=== PATIENT | male | born 1955 | race Native Hawaiian/Other Pacific Islander ===

== ENCOUNTER 2016-05-21 10:43 | Outpatient (CLI) | payer BC | END 2016-05-21 19:50 | disposition home or self-care (01) | LOC: MRI 10:43 | DX: M50.122 Cervical disc disorder at C5-C6 level with radiculopathy (principal) ==

== ENCOUNTER 2017-09-16 08:22 | Outpatient (CLI) | payer OTHER ==
[2017-09-16 08:35] LABS: PLATELET COUNT 183 K/uL (142-355)
[2017-09-16 09:39] LABS: POTASSIUM 4.3 mmol/L (3.6-5.2)
== END 2017-09-16 19:33 | disposition home or self-care (01) ==
LOC: LABW 08:22
PROVIDERS: Internal Medicine
DX: Z00.00 Encounter for general adult medical examination without abnormal findings (principal); Z12.5 Encounter for screening for malignant neoplasm of prostate; E78.00 Pure hypercholesterolemia, unspecified
CPT/HCPCS: 36415; 80053; 80061; 81000; 84153; 84443; 85027

== ENCOUNTER 2018-02-10 07:54 | Outpatient (CLI) | payer OTHER | END 2018-02-10 23:22 | disposition home or self-care (01) | LOC: MRI 07:54 | DX: M54.16 Radiculopathy, lumbar region (principal); M25.552 Pain in left hip ==

== ENCOUNTER 2018-11-24 08:26 | Outpatient (CLI) | payer OTHER ==
[2018-11-24 08:59] LABS: PLATELET COUNT 203 K/uL (142-355)
== END 2018-11-24 19:56 | disposition home or self-care (01) ==
LOC: LABW 08:26
PROVIDERS: Internal Medicine
DX: Z00.00 Encounter for general adult medical examination without abnormal findings (principal); Z12.11 Encounter for screening for malignant neoplasm of colon; Z12.5 Encounter for screening for malignant neoplasm of prostate
CPT/HCPCS: 36415; 80053; 80061; 81000; 82272; 84153; 84443; 85027

== ENCOUNTER 2018-11-25 12:59 | Outpatient (CLI) | payer OTHER | END 2018-11-25 23:27 | disposition home or self-care (01) | LOC: LAB 12:59 | DX: Z12.11 Encounter for screening for malignant neoplasm of colon (principal); Z12.5 Encounter for screening for malignant neoplasm of prostate ==

== ENCOUNTER 2018-11-26 07:50 | Outpatient (CLI) | payer OTHER | END 2018-11-26 23:42 | disposition home or self-care (01) | LOC: LAB 07:50 | DX: Z12.11 Encounter for screening for malignant neoplasm of colon (principal); Z12.5 Encounter for screening for malignant neoplasm of prostate | CPT/HCPCS: 82272 ==

== ENCOUNTER 2020-02-15 14:58 | Outpatient (CLI) | payer OTHER, MEDICARE | END 2020-02-15 19:39 | disposition home or self-care (01) | LOC: LABW 14:58 | DX: E55.9 Vitamin D deficiency, unspecified (principal) | CPT/HCPCS: 36415; 82306 ==

== ENCOUNTER 2020-10-17 10:02 | Outpatient (CLI) | payer OTHER, MEDICARE | END 2020-10-17 22:08 | disposition home or self-care (01) | LOC: LABW 10:02 | PROVIDERS: ATTEND Orthopaedic Surgery | DX: Z01.818 Encounter for other preprocedural examination (principal) | CPT/HCPCS: 87070 ==

== ENCOUNTER 2021-04-03 10:35 | Outpatient (CLI) | payer OTHER, MEDICARE ==
[2021-04-03 11:26] LABS: PLATELET COUNT 240 K/uL (142-355)
[2021-04-03 11:47] LABS: POTASSIUM 4.2 mmol/L (3.6-5.2)
== END 2021-04-03 20:22 | disposition home or self-care (01) ==
LOC: LABW 10:35
PROVIDERS: ATTEND Internal Medicine
DX: E55.9 Vitamin D deficiency, unspecified (principal); I10 Essential (primary) hypertension; R53.83 Other fatigue; Z79.899 Other long term (current) drug therapy; E53.8 Deficiency of other specified B group vitamins
CPT/HCPCS: 36415; 80053; 81000; 82024; 82043; 82088; 82306; 82533; 82607; 82728; 82746; 83036; 83540; 83550; 83735; 83835; 84100; 84244; 84439; 84443; 85027; 85652; 86038; 86430

== ENCOUNTER 2022-01-09 07:53 | Outpatient (CLI) | payer OTHER, MEDICARE | END 2022-01-09 19:21 | disposition home or self-care (01) | LOC: CT 07:53 | PROVIDERS: ATTEND Internal Medicine | DX: R10.9 Unspecified abdominal pain (principal); Z87.442 Personal history of urinary calculi; Z09 Encounter for follow-up examination after completed treatment for conditions other than malignant neoplasm ==

== ENCOUNTER 2022-01-09 21:49 | Emergency (ER) | payer OTHER, MEDICARE ==
[~2022-01-09] VITALS: Ht 180.3 cm; Wt 95.3 kg
[2022-01-09 23:16] LABS: PLATELET COUNT 208 K/uL (142-355)
[2022-01-09 23:28] LABS: POTASSIUM 4.3 mmol/L (3.6-5.2)
[2022-01-10 01:55] VITALS: TEMP 98.2
[2022-01-10 02:00] VITALS: BP 121/80
== END 2022-01-10 01:55 | disposition home or self-care (01) ==
LOC: ED 21:49
PROVIDERS: Emergency Medicine Emergency Medical Services
DX: N20.0 Calculus of kidney (principal); K57.32 Diverticulitis of large intestine without perforation or abscess without bleeding; Z87.442 Personal history of urinary calculi
CPT/HCPCS: 36415; 80053; 81000; 85027; 96365; 96375; 96376; 99284; J0696; J1885; J2270; J2405

== ENCOUNTER 2022-03-11 14:15 | Outpatient (CLI) | payer OTHER, MEDICARE ==
[2022-03-11 14:32] LABS: PLATELET COUNT 179 K/uL (142-355)
[2022-03-11 15:15] LABS: POTASSIUM 4.2 mmol/L (3.6-5.2)
== END 2022-03-11 19:00 | disposition home or self-care (01) ==
LOC: LABW 14:15
PROVIDERS: ATTEND Internal Medicine
DX: I10 Essential (primary) hypertension (principal); N40.0 Benign prostatic hyperplasia without lower urinary tract symptoms
CPT/HCPCS: 36415; 80053; 80061; 82565; 83735; 84100; 84153; 84439; 84443; 85027

== ENCOUNTER 2022-08-01 09:38 | Outpatient (CLI) | payer OTHER, MEDICARE ==
[2022-08-01 09:58] LABS: PLATELET COUNT 195 K/uL (142-355)
[2022-08-01 10:16] LABS: POTASSIUM 4.5 mmol/L (3.6-5.2)
== END 2022-08-01 19:33 | disposition home or self-care (01) ==
LOC: LABW 09:38
PROVIDERS: ATTEND Internal Medicine
DX: I10 Essential (primary) hypertension (principal); Z79.899 Other long term (current) drug therapy
CPT/HCPCS: 80053; 80061; 82550; 83735; 84100; 84153; 84439; 84443; 85027

== ENCOUNTER 2022-09-12 11:28 | Emergency (ER) | payer OTHER, MEDICARE ==
[~2022-09-12] VITALS: Ht 180.3 cm; Wt 90.7 kg
[2022-09-12 11:57] LABS: PLATELET COUNT 168 K/uL (142-355)
[2022-09-12 12:08] LABS: POTASSIUM 3.8 mmol/L (3.6-5.2)
[2022-09-12 16:00] VITALS: TEMP 101
[2022-09-12 16:25] VITALS: BP 97/57
== END 2022-09-12 16:25 | disposition short-term general hospital (02) ==
LOC: ED 11:28
PROVIDERS: Emergency Medicine
DX: K35.80 Unspecified acute appendicitis (principal)
CPT/HCPCS: 36415; 80053; 83605; 85027; 87040; 96361; 96365; 96375; 99284; J1885; J2270; J2405; J2543; Q9963

== ENCOUNTER 2023-01-02 11:38 | Outpatient (CLI) | payer OTHER, MEDICARE | END 2023-01-02 20:18 | disposition home or self-care (01) | LOC: LABW 11:38 | PROVIDERS: ATTEND Internal Medicine | DX: R19.7 Diarrhea, unspecified (principal); D84.89 Other immunodeficiencies | CPT/HCPCS: 82272; 83630; 87324; 87328; 87329; 87449; 87507 ==

== ENCOUNTER 2023-01-21 11:29 | Outpatient (CLI) | payer OTHER, MEDICARE | END 2023-01-21 22:05 | disposition home or self-care (01) | LOC: CT 11:29 | PROVIDERS: ATTEND Nurse Practitioner Family | DX: R10.9 Unspecified abdominal pain (principal) ==